=== PATIENT | female | born 1950 | race Caucasian/White ===

== ENCOUNTER → 2017-12-02 | Outpatient (CLI) | payer MEDICARE ==
--- NOTE | 2017-12-03 07:25 | MM ---
Reason for exam: screening (asymptomatic). Last mammogram was performed 1 year and 4 months ago. History: Benign excisional biopsy of the left breast. Physical Findings: A clinical breast exam by your physician is recommended on an annual basis and results should be correlated with mammographic findings. MG 3D Screening Mammo W/Cad Bilateral CC and MLO view(s) were taken. Prior study comparison: August 08, 2016, mammogram. March 29, 2015, mammogram. There are scattered fibroglandular densities. There is no discrete abnormality. No significant changes when compared with prior studies. ASSESSMENT: Negative, BI-RAD 1 RECOMMENDATION: Routine screening mammogram of both breasts in 1 year.
--- NOTE | 2017-12-03 18:12 | BD ---
EXAMINATION TYPE: Axial Bone Density DATE OF EXAM: 12/02/2017 COMPARISON: NONE CLINICAL HISTORY: 67-year-old female postmenopausal screening Height: 62 Weight: 130.2 FRAX RISK QUESTIONS: Alcohol (3 or more units per day): no Family History (Parent hip fracture): yes Glucocorticoids (More than 3mos): no (Ex: prednisone, prednisolone, methylprednisolone, dexamethasone, and hydrocortisone). History of Fracture in Adulthood: yes Secondary Osteoporosis: 1. Type 1 Diabetes: no 2. Hyperthyroidism: no 3. Menopause before 45: yes 4. Malnutrition: no 5. Chronic liver disease: no Rheumatoid Arthritis: no Current Tobacco Use: no RISK FACTORS HISTORY OF: Active: yes Diet low in dairy products/other sources of calcium: no Postmenopausal woman: age 39 Lost more than 2 inches in height since high school: no MEDICATIONS: none Additional History: EXAM MEASUREMENTS: Bone mineral densitometry was performed using the [employer] System. Bone mineral density as measured about the Lumbar spine is: ----- L1-L4(G/cm2): 0.780 T Score Values are as follows: ----- L2: -3.5 ----- L3: -3.4 ----- L4: -3.6 ----- L1-L4: -3.3 Bone mineral density : baseline Bone mineral density about the R hip (g/cm2): 0.791 Bone mineral density about the L hip (g/cm2): 0.816 T Score values are as follows: -----R Neck: -1.8 -----L Neck: -1.6 -----R Total: -2.2 -----L Total: -1.9 Bone mineral density : baseline IMPRESSION: Osteoporosis (T Score less than -2.5). There is increased fracture risk and therapy is usually indicated based on age. Re-Screen 1-2 years. NOTE: T-SCORE=SD OF THE YOUNG ADULT MEAN.
== END | disposition home or self-care (01) ==
LOC: RADMAMWWP 09:32
PROVIDERS: ATTEND Internal Medicine
DX: Z12.31 Encounter for screening mammogram for malignant neoplasm of breast (principal); M81.0 Age-related osteoporosis without current pathological fracture; Z78.0 Asymptomatic menopausal state
CPT/HCPCS: 77063; 77067; 77080

== ENCOUNTER 2018-02-05 09:31 | Day surgery (SDC) | payer MEDICARE ==
[2018-02-03 14:25] VITALS: BMI 22.8
[~2018-02-05 09:31] MED LIST: LACTATED RINGERS 1,000 ML IV SCH; LIDOCAINE 1% 20 ML VIAL (10MG/ML) FOR IV START INTRADERMA PRN
[2018-02-05 10:47] VITALS: TEMP 98
[2018-02-05] MEDS ORDERED: PROPOFOL 10 MG/ML 20 ML VIAL IV ONE (11:05)
--- NOTE | 2018-02-05 11:23 | P.PCN ---
Date of Procedure: 02/05/18 Procedure(s) Performed: BRIEF HISTORY: Patient is a 67-year-old pleasant female, scheduled for an elective colonoscopy as a part of screening for colorectal neoplasia. PROCEDURE PERFORMED: Colonoscopy. PREOPERATIVE DIAGNOSIS: Screening for colon cancer. IV sedation per Anesthesia. PROCEDURE: After informed consent was obtained, the patient, was brought into the endoscopy unit. IV sedation was administered by Anesthesia under continuous monitoring. Digital rectal examination was normal. Initially the Olympus CF- 160 flexible video colonoscope was then inserted in the rectum, gradually advanced into the cecum without any difficulty. Careful examination was performed as the scope was gradually being withdrawn. Ileocecal valve and the appendiceal orifice were visualized and appeared normal. Prep was excellent. Mucosa of the cecum, ascending colon, transverse colon, descending colon, sigmoid colon, and rectum appeared normal. Scattered right-sided diverticulosis seen. Retroflexion was performed in the rectum and small internal hemorrhoids were seen. The patient tolerated the procedure well. IMPRESSION: Normal-appearing colon from rectum to cecum with no evidence of colorectal neoplasia . Scattered diffuse diverticulosis Small internal hemorrhoids RECOMMENDATIONS: Findings of this examination were discussed with the patient is a family. She was advised to have a repeat screening colonoscopy in 10 years.
[2018-02-05 11:46] VITALS: BP 134/86; PULSE 86; RESP 16
== END 2018-02-05 12:08 | disposition home or self-care (01) ==
LOC: ORWHC2ENDO 09:31
PROVIDERS: ATTEND Internal Medicine Gastroenterology
DX: Z12.11 Encounter for screening for malignant neoplasm of colon (principal); K64.8 Other hemorrhoids; K57.30 Diverticulosis of large intestine without perforation or abscess without bleeding
CPT/HCPCS: J2704; G0121

== ENCOUNTER 2018-02-06 09:45 | Day surgery (SDC) | payer MEDICARE ==
[2018-02-03 14:35] VITALS: BMI 22.8
[~2018-02-06 09:45] MED LIST changes: +HYDROmorphone 0.5 MG/0.5 ML SYRINGE IVP PRN; -LIDOCAINE 1% 20 ML VIAL (10MG/ML) FOR IV START INTRADERMA PRN; +MORPHINE SULFATE 2 MG/ML SYRINGE IV PRN; +Pre Op ABX Message 1 EACH MISC MISCELLANE ONE; +cefOXitin IN SWFI 2 GM/10 ML SYRINGE IVP ONE
[2018-02-06 10:06] VITALS: RESP 18; TEMP 97.8
[2018-02-06] MEDS ORDERED: LACTATED RINGERS 1,000 ML IV ONE ×2 (10:07→12:27)
[2018-02-06] MEDS ORDERED: LIDOCAINE 1% 20 ML VIAL (10MG/ML) FOR IV START INTRADERMA ONE (10:14)
[2018-02-06] MEDS ORDERED: ONDANSETRON 4 MG/2 ML VIAL IVP ONE (10:15)
[2018-02-06] MEDS ORDERED: DEXAMETHASONE SOD PHOS (MDV) 100 MG/10 ML VIAL IVP ONE (10:15)
[2018-02-06] MEDS ORDERED: MIDAZOLAM 2 MG/2 ML VIAL ONE (11:29)
[2018-02-06] MEDS ORDERED: fentaNYL (PF) 50 MCG/ML 2 ML AMP ONE (11:29)
[2018-02-06] MEDS ORDERED: PROPOFOL 10 MG/ML 20 ML VIAL IV ONE (11:29)
[2018-02-06] MEDS ORDERED: LIDOCAINE 1% INJ 10MG/ML (20 ML MDV) ONE (11:29)
[2018-02-06] MEDS ORDERED: BUPIVACAINE-EPI 0.5%-1:200,000 10 ML VIAL SQ ONE ×3 (11:49)
--- NOTE | 2018-02-06 12:55 | P.OP ---
Date of Procedure: 02/06/18 Preoperative Diagnosis: Squamous cell CA x2 RLE x1 LLE Postoperative Diagnosis: same Procedure(s) Performed: Excision of squamous cell CA RLEx2 LLEx1 Anesthesia: MAC Surgeon: Samy Orourke Estimated Blood Loss (ml): 3 Pathology: other (Sent) Condition: stable Description of Procedure: Patient is brought operative suite remained in the supine position underwent sedation per department of anesthesia prepped and draped usual sterile fashion timeout performed correct patient correct procedure correct site was verified the skin and subcutaneous tissues were anesthetized over the lesions on the right lower extremity. A 15 blade scalpel was used to excise the lesions with adequate margins there then closed with 30 subdermal Vicryl followed by 2-0 nylon in a vertical mattress style. The excision was approximately 2 cm x 6 cm for each. The lesion on the left posterior hernia was then approached in a similar fashion. It was 3 cm x 7 cm excision. This closed in a similar fashion sterile dressing was applied patient tolerated procedure well no apparent complications Plan - Discharge Summary New Discharge Prescriptions: No Action Multivitamins, Thera [Multivitamin (formulary)] 1 tab PO DAILY Turmeric Root Extract [Turmeric] 500 mg PO DAILY Magnesium 200 mg PO DAILY Fish Oil/Dha/Epa [Fish Oil 1,200 mg Fish Oil] 1 each PO DAILY Evening Whitmore Oil 500 mg PO DAILY Cholecalciferol (Vitamin D3) [Vitamin D3] 2,000 unit PO DAILY Discharge Medication List Cholecalciferol (Vitamin D3) [Vitamin D3] 2,000 unit PO DAILY 02/03/18 [History] Evening Whitmore Oil 500 mg PO DAILY 02/03/18 [History] Fish Oil/Dha/Epa [Fish Oil 1,200 mg Fish Oil] 1 each PO DAILY 02/03/18 [History] Magnesium 200 mg PO DAILY 02/03/18 [History] Multivitamins, Thera [Multivitamin (formulary)] 1 tab PO DAILY 02/03/18 [History ] Turmeric Root Extract [Turmeric] 500 mg PO DAILY 02/03/18 [History]
[2018-02-06 13:38] VITALS: BP 150/88; PULSE 71
--- NOTE | 2018-02-12 06:40 | CDI ---
Outpatient Documentation Clarification Form Date: 02/12/2018 CDS/Set Up Technician Name: Ellis Borjas Phone: If any questions, call Awilda Barnard [employer] at [phone] Patient Name: Joseline Pizano Admit Date: 02/06/2018 Discharge Date: 02/06/2018 ATTENTION: The [facility] Coding Staff appreciate your assistance in clarifying documentation. Please respond to the clarification below the line at the bottom and electronically sign. The [facility] Coding staff will review the response and follow-up if needed. Please note: Queries are made part of the Legal Health Record. If you have any questions, please contact the [employer]. Dear Sharad Junior, As per your Operative note documentation Patient has squamous cell CA RLEx2, LLEx1. It is not clear from operative notes description that a separate incision was performed to excise lesions from Right lower extremity Please clarify how the lesions were excised from Right Lower extremity. 1. Using same incision both lesions were excised 2. Using separate incision for each lesion excision____YES Thank you for your kind consideration. MTDD
== END 2018-02-06 13:49 | disposition home or self-care (01) ==
LOC: OR 09:45
PROVIDERS: ATTEND Student in an Organized Health Care Education/Training Program
DX: C44.729 Squamous cell carcinoma of skin of left lower limb, including hip (principal); L57.0 Actinic keratosis; L81.4 Other melanin hyperpigmentation; M19.90 Unspecified osteoarthritis, unspecified site; I73.00 Raynaud's syndrome without gangrene; G43.909 Migraine, unspecified, not intractable, without status migrainosus; Z82.49 Family history of ischemic heart disease and other diseases of the circulatory system; Z85.828 Personal history of other malignant neoplasm of skin
CPT/HCPCS: 11606; 11406 ×2; 88305; J2250; J2405; J2001; J3010; J1100; J2704

== ENCOUNTER → 2018-12-11 | Outpatient (CLI) | payer MEDICARE ==
--- NOTE | 2018-12-11 11:20 | MM ---
Reason for exam: screening (asymptomatic). Last mammogram was performed 1 year ago. History: Patient history of other cancer. Benign excisional biopsy of the left breast. Physical Findings: A clinical breast exam by your physician is recommended on an annual basis and results should be correlated with mammographic findings. MG 3D Screening Mammo W/Cad Bilateral CC and MLO view(s) were taken. Prior study comparison: December 02, 2017, bilateral MG 3d screening mammo w/cad. August 08, 2016, mammogram. There are scattered fibroglandular densities. There is no discrete abnormality. ASSESSMENT: Negative, BI-RAD 1 RECOMMENDATION: Routine screening mammogram of both breasts in 1 year.
== END | disposition home or self-care (01) ==
LOC: RADMAMWWP 07:08
PROVIDERS: ATTEND Internal Medicine
DX: Z12.31 Encounter for screening mammogram for malignant neoplasm of breast (principal)
CPT/HCPCS: 77063; 77067

== ENCOUNTER → 2019-01-09 | Outpatient (CLI) | payer MEDICARE ==
--- NOTE | 2019-01-12 08:54 | USB ---
Reason for exam: clinical finding. History: Patient history of other cancer. Benign excisional biopsy of the left breast. Indicated problem(s): palpable abnormality in the left breast. Physical Findings: Nurse Summary: 1cm nodule moves (nurse dw). US Breast Axilla LT Left breast axilla ultrasound including focal area of concern, retroareolar and axilla demonstrates a 0.7 x 0.5 x 0.4cm ovoid, solid, hypoechoic, vascular lymph node at the axilla and a 0.5 x 0.5 x 0.4cm ovoid, solid, hypoechoic, vascular lymph node at the axilla. These results were verbally communicated with the patient and result sheet given to the patient on 01/09/19. ASSESSMENT: Benign, BI-RAD 2 RECOMMENDATION: Return to routine screening mammogram schedule for both breasts.
== END | disposition home or self-care (01) ==
LOC: RADUSWWP 14:14
PROVIDERS: ATTEND Internal Medicine
DX: R92.8 Other abnormal and inconclusive findings on diagnostic imaging of breast (principal)

== ENCOUNTER → 2019-11-18 | Outpatient (CLI) | payer MEDICARE ==
--- NOTE | 2019-11-18 10:43 | MM ---
Reason for exam: clinical finding. Last mammogram was performed 11 months ago. History: Patient is postmenopausal and history of other cancer. Benign excisional biopsy of the left breast, 1988. Physical Findings: Nurse Summary: adenopathy 1.5 x 1.5cm left axilla (nurse ts). MG 3D Diag Mammo W/Cad ROCIO Bilateral CC and MLO view(s) were taken. Prior study comparison: December 11, 2018, bilateral MG 3d screening mammo w/cad. December 02, 2017, bilateral MG 3d screening mammo w/cad. There are scattered fibroglandular densities. No significant new findings when compared with previous films. These results were verbally communicated with the patient and result sheet given to the patient on 11/18/19. ASSESSMENT: Negative, BI-RAD 1 RECOMMENDATION: Routine screening mammogram of both breasts in 1 year. Manage patient on a clinical basis.
--- NOTE | 2019-11-18 10:45 | USB ---
Reason for exam: clinical finding. History: Patient is postmenopausal and history of other cancer. Benign excisional biopsy of the left breast, 1988. US Breast Axilla LT Left limited breast ultrasound including focal area of concern, retroareolar and axilla demonstrates sccessory breast tissue at axilla BB. No cystic or solid lesion seen. These results were verbally communicated with the patient and result sheet given to the patient on 11/18/19. ASSESSMENT: Negative, BI-RAD 1 RECOMMENDATION: Routine screening mammogram of both breasts in 1 year.
== END | disposition home or self-care (01) ==
LOC: RADMAMWWP 08:11
PROVIDERS: ATTEND Internal Medicine
DX: N63.0 Unspecified lump in unspecified breast (principal); R59.0 Localized enlarged lymph nodes
CPT/HCPCS: 77066; 76642; G0279; 77062

== ENCOUNTER → 2019-12-30 | Outpatient (CLI) | payer MEDICARE ==
--- NOTE | 2019-12-30 14:24 | BD ---
EXAMINATION TYPE: Axial Bone Density DATE OF EXAM: 12/30/2019 COMPARISON: NONE CLINICAL HISTORY: Height: 62 Weight: 127.7 FRAX RISK QUESTIONS: Alcohol (3 or more units per day): no Family History (Parent hip fracture): yes Glucocorticoids (More than 3mos): no (Ex: prednisone, prednisolone, methylprednisolone, dexamethasone, and hydrocortisone). History of Fracture in Adulthood: yes Secondary Osteoporosis: 1. Type 1 Diabetes: no 2. Hyperthyroidism: no 3. Menopause before 45: no 4. Malnutrition: no 5. Chronic liver disease: no Rheumatoid Arthritis: no Current Tobacco Use: no RISK FACTORS HISTORY OF: Family History of Osteoporosis: no Active: yes Diet low in dairy products/other sources of calcium: no Postmenopausal woman: age 47 Lost more than 2 inches in height since high school: no MEDICATIONS: amlodipine, adavan Additional History: EXAM MEASUREMENTS: Bone mineral densitometry was performed using the [employer]. Bone mineral density as measured about the Lumbar spine is: ----- L1-L4(G/cm2): 0.788 T Score Values are as follows: ----- L2: -3.4 ----- L3: -3.6 ----- L4: -3.2 ----- L1-L4: -3.3 Bone mineral density has: increased 1.9 % since study of: 12.02.2017 Bone mineral density about the R hip (g/cm2): 0.748 Bone mineral density about the L hip (g/cm2): 0.783 T Score values are as follows: -----R Neck: -2.1 -----L Neck: -1.8 -----R Total: -2.5 -----L Total: -2.0 Bone mineral density has: decreased -2.4 % since study of: 12.02.2017 IMPRESSION: Osteoporosis (T Score less than -2.5). There is increased fracture risk and therapy is usually indicated based on age. Re-Screen 1-2 years. NOTE: T-SCORE=SD OF THE YOUNG ADULT MEAN.
== END | disposition home or self-care (01) ==
LOC: RADBDWWP 09:29
PROVIDERS: ATTEND Internal Medicine
DX: M81.8 Other osteoporosis without current pathological fracture (principal)
CPT/HCPCS: 77080

== ENCOUNTER → 2020-03-08 | Outpatient (CLI) | payer MEDICARE ==
--- NOTE | 2020-03-08 12:06 | XR ---
EXAM TYPE: LUMBAR SPINE X RAY SERIES COMPARISON: NONE HISTORY: Pain TECHNIQUE: Four views are submitted. FINDINGS: Diffuse osteopenia with grade 1 anterolisthesis L4 on L5. Multilevel facet arthropathy. Multilevel de generative disc disease. No compression deformities. A grade 1 anterolisthesis L5 on S1. IMPRESSION: 1. Multilevel degenerative disc disease and facet arthropathy with grade 1 anterolisthesis L4 on L5 a nd L5 on S1
== END | disposition home or self-care (01) ==
LOC: RADXRYALE 11:03
PROVIDERS: ATTEND Family Medicine
DX: M43.16 Spondylolisthesis, lumbar region (principal); M51.36 Other intervertebral disc degeneration, lumbar region; M47.816 Spondylosis without myelopathy or radiculopathy, lumbar region
CPT/HCPCS: 72110

== ENCOUNTER → 2021-03-13 | Outpatient (CLI) | payer MEDICARE ==
--- NOTE | 2021-03-16 11:14 | MM ---
Reason for exam: screening (asymptomatic). Last mammogram was performed 1 year and 4 months ago. History: Patient is postmenopausal and has history of other cancer at age 29. Benign excisional biopsy of the left breast, 1988. Physical Findings: A clinical breast exam by your physician is recommended on an annual basis and results should be correlated with mammographic findings. MG 3D Screening Mammo W/Cad Bilateral CC and MLO view(s) were taken. Prior study comparison: November 18, 2019, bilateral MG 3d diag mammo w/cad ROCIO. December 11, 2018, bilateral MG 3d screening mammo w/cad. There are scattered fibroglandular densities. No significant changes when compared with prior studies. ASSESSMENT: Negative, BI-RAD 1 RECOMMENDATION: Routine screening mammogram of both breasts in 1 year.
== END | disposition home or self-care (01) ==
LOC: RADMAMWWP 13:20
PROVIDERS: ATTEND Family Medicine
DX: Z12.31 Encounter for screening mammogram for malignant neoplasm of breast (principal); Z78.0 Asymptomatic menopausal state
CPT/HCPCS: 77063; 77067

== ENCOUNTER → 2022-07-11 | Outpatient (CLI) | payer MEDICARE ==
--- NOTE | 2022-07-12 08:47 | MM ---
Reason for Exam: Screening (asymptomatic). Last mammogram was performed 1 year(s) and 4 month(s) ago. Patient History: Menarche at age 11. First Full-Term at age 18. Hysterectomy at age 39. Postmenopausal. Other cancer, age 29. Hormonal Contraceptives for 11 years from age 18 until age 29. 1989, Benign Excisional Biopsy on the left side. Risk Values: Lavinia 5 year model risk: 1.5%. NCI Lifetime model risk: 3.9%. Prior Study Comparison: 12/11/2018 Bilateral Screening Mammogram, [facility]. 11/18/2019 Bilateral Diagnostic Mammogram, [facility]. 03/13/2021 Bilateral Screening Mammogram, [facility]. Tissue Density: There are scattered fibroglandular densities. Findings: Analyzed By CAD. There is no suspicious group of microcalcifications or new suspicious mass in either breast. Overall Assessment: Negative, BI-RAD 1 Management: Screening Mammogram of both breasts in 1 year. . Patient should continue monthly self-breast exams. A clinical breast exam by your physician is recommended on an annual basis. This exam should not preclude additional follow-up of suspicious palpable abnormalities. Note on Lavinia scores and lifetime risk: 1. A Lavinia score greater than 3% is considered moderate risk. If this is the case, consider specialist referral to assess eligibility for a risk reducing agent. 2. If overall lifetime risk for the development of breast cancer is 20% or higher, the patient may qualify for future screening with alternating mammogram and breast MRI. Electronically signed and approved by: Dago Alfaro M.D.
== END | disposition home or self-care (01) ==
LOC: RADMAMWWP 09:33
PROVIDERS: ATTEND Family Medicine
DX: Z12.31 Encounter for screening mammogram for malignant neoplasm of breast (principal); Z78.0 Asymptomatic menopausal state
CPT/HCPCS: 77063; 77067

== ENCOUNTER 2023-02-12 12:35 | Emergency (ER) | payer MEDICARE ==
--- NOTE | 2023-02-12 13:02 | ED ---
General Adult HPI - General Source: patient, RN notes reviewed Mode of arrival: ambulatory Limitations: no limitations <Farhan Mccullough - Last Filed: 02/12/23 13:00> <Umberto Garland - Last Filed: 02/12/23 15:02> - General Chief complaint: Fall Stated complaint: Syncope w/R Arm Injury Time Seen by Provider: 02/12/23 13:00 - History of Present Illness Initial comments: 72-year-old female presents emergency Department with chief complaint of right hand injury. Patient states that she stood up quickly. states that she got very lightheaded states she sat back down got up in fell the ground. Patient had no head injuries complains of right hand pain, bruising and swelling. She states she is not dizzy currently denies chest pain. (Farhan Mccullough) Dictation was produced using [employer]ide[employer] dictation software. please excuse any grammatical, word or spelling errors. Chief Complaint: 72-year-old female presents with right hand pain History of Present Illness: Patient's 72-year-old female she denies any significant comorbidities. States that randomly she gets these bouts of nausea and vomiting and syncope. States that she had some fatty foods last night. She went home and had one of these episodes. She fell and hit her hand. She is concerned about her hand. She is not concerned about her syncopal episode. Denies any history of cardiac disease. The ROS documented in this emergency department record has been reviewed and confirmed by me. Those systems with pertinent positive or negative responses have been documented in the HPI. All other systems are other negative and/or noncontributory. (Umberto Garland) - Related Data Home Medications Medication Instructions Recorded Confirmed Cholecalciferol (Vitamin D3) 2,000 unit PO DAILY 02/03/18 02/03/18 [Vitamin D3] Evening Neola Oil 500 mg PO DAILY 02/03/18 02/03/18 Fish Oil/Dha/Epa [Fish Oil 1,200 1 each PO DAILY 02/03/18 02/03/18 mg Fish Oil] Magnesium 200 mg PO DAILY 02/03/18 02/03/18 Multivitamins, Thera [Multivitamin 1 tab PO DAILY 02/03/18 02/03/18 (formulary)] Turmeric Root Extract [Turmeric] 500 mg PO DAILY 02/03/18 02/03/18 Previous Rx's Medication Instructions Recorded HYDROcodone/APAP 5-325MG [[place] 1 tab PO Q6HR PRN 3 Days #12 tab 02/06/18 5-325] Allergies Allergy/AdvReac Type Severity Reaction Status Date / Time No Known Allergies Allergy Verified 02/12/23 12:59 Review of Systems ROS Other: All systems not noted in ROS Statement are negative. <Farhan Mccullough - Last Filed: 02/12/23 13:00> ROS Other: All systems not noted in ROS Statement are negative. <Umberto Garland - Last Filed: 02/12/23 15:02> ROS Statement: Those systems with pertinent positive or pertinent negative responses have been documented in the HPI. Past Medical History Additional Past Medical History / Comment(s): Raynaud's disease; Hx Diverticulitis History of Any Multi-Drug Resistant Organisms: None Reported Past Surgical History: Hysterectomy Additional Past Surgical History / Comment(s): Breast biopsy, squamous lesions removed; jaw bone graft 12/19 Past Anesthesia/Blood Transfusion Reactions: No Reported Reaction Past Psychological History: No Psychological Hx Reported Past Alcohol Use History: Occasional Past Drug Use History: None Reported - Past Family History Father Family Medical History: Cancer Additional Family Medical History / Comment(s): Skin CA <Farhan Mccullough - Last Filed: 02/12/23 13:00> General Exam Limitations: no limitations <Farhan Mccullough - Last Filed: 02/12/23 13:00> <Umberto Garland - Last Filed: 02/12/23 15:02> - General Exam Comments Initial Comments: Visual Physical Exam Vital signs reviewed General: Well-appearing, nontoxic, no acute distress. Head: Normocephalic, atraumatic Eyes: PERRLA, EOMI ENT: Airway patent Chest: Nonlabored breathing Skin: No visual rash, normal skin tone Neuro: Alert and oriented 3 Musculoskeletal: No gross abnormalities (Farhan Mccullough) PHYSICAL EXAM: General Impression: Alert and oriented x3, not in acute distress HEENT: Normocephalic atraumatic, extra-ocular movements intact, pupils equal and reactive to light bilaterally, mucous membranes moist. Cardiovascular: Heart regular rate and rhythm Chest: Able to complete full sentences, no retractions, no tachypnea Abdomen: abdomen soft, non-tender, non-distended, no organomegaly Musculoskeletal: Pulses present and equal in all extremities, no peripheral edema Motor: no focal deficits noted Neurological: CN II-XII grossly intact, no focal motor or sensory deficits noted Skin: Intact with no visualized rashes Psych: Normal affect and mood Right hand: Bruising over the fifth MCP (Umberto Garland) Course Vital Signs 02/12/23 02/12/23 12:56 14:50 Temperature 99.2 F 98.2 F Pulse Rate 87 85 Respiratory 18 18 Rate Blood Pressure 142/82 143/86 O2 Sat by Pulse 98 97 Oximetry EKG Findings - EKG Comments: EKG Findings:: My EKG interpretation: Ventricular rate 79, sinus rhythm,. Interval 52, QRS 87, QTC 409. No ID prolongation, no QTC prolongation. No old EKG for comparison. His T-wave inversions in inferior leads and lateral precordial leads. Overall this EKG is nonspecific <Umberto Garland - Last Filed: 02/12/23 15:02> Procedures - Orthopedic Splinting/Casting Injury #1 Side: right Upper Extremity Injury Location: short arm, hand Upper Extremity Immobilizer: ulnar gutter <Umberto Garland - Last Filed: 02/12/23 15:02> Medical Decision Making <Farhan Mccullough - Last Filed: 02/12/23 13:00> - Lab Data Result diagrams: 02/12/23 14:05 02/12/23 14:05 <Umberto Garland - Last Filed: 02/12/23 15:02> - Medical Decision Making I completed the quick note portion of this chart signed Farhan Mccullough PA-C (Farhan Mccullough) Was pt. sent in by a medical professional or institution ([facility], [facility], urgent care, hospital, or snf...) When possible be specific @ -No Did you speak to anyone other than the patient for history (EMS, parent, family, police, friend...)? What history was obtained from this source @ -No Did you review nursing and triage notes (agree or disagree)? Why? @ -I reviewed and agree with nursing and triage notes Were old charts reviewed (outside hosp., previous admission, EMS record, old EKG, old radiological studies, urgent care reports/EKG's, snf records)? Report findings @ -No old charts were reviewed Differential Diagnosis (chest pain, altered mental status, abdominal pain women, abdominal pain men, vaginal bleeding, musculoskeletal, weakness, fever, dyspnea, syncope, headache, dizziness, GI bleed, back pain, seizure, CVA, palpatations, mental health)? @ -Differential Syncope: Valvular disease, hypertrophic cardiomyopathy, pulmonary embolism, tamponade, tachycardia, bradycardia, VA, hypovolemia, hemorrhage, dissection, anemia, intracranial hemorrhage, seizure, hypoglycemia, carbon monoxide poisoning, this is not meant to be an all-inclusive list. EKG interpreted by me (3pts min.). @ -As above X-rays interpreted by me (1pt min.). @ -Right hand x-ray shows angulated fifth metacarpal fracture CT interpreted by me (1pt min.). @ -None done U/S interpreted by me (1pt. min.). @ -None done What testing was considered but not performed or refused? (CT, X-rays, U/S, labs)? Why? @ -None What meds were considered but not given or refused? Why? @ -None Did you discuss the management of the patient with other professionals (lili singh i.e., Dr., PA, RISK LEAD, lab, RT, psych nurse, director social, drapery installer, teacher, chief administrative officer, supportive employment case manager)? Give summary @ -No Was smoking cessation discussed for >3mins.? @ -No Was critical care preformed (if so, how long)? @ -No Were there social determinants of health that impacted care today? How? (Homelessness, low income, unemployed, alcoholism, drug addiction, transportation, low edu. Level, literacy, decrease access to med. care, alf, rehab)? @ -No Was there de-escalation of care discussed even if they declined (Discuss DNR or withdrawal of care, Hospice)? DNR status @ -No What co-morbidities impacted this encounter? (DM, HTN, Smoking, COPD, CAD, Cancer, CVA, ARF, Chemo, Hep., AIDS, mental health diagnosis, sleep apnea, morbid obesity)? @ -None Was patient admitted / discharged? Hospital course, mention meds given and route, prescriptions, significant lab abnormalities, going to OR and other pertinent info. @ -72-year-old female presents emergency Department with chief complaint of hand pain. She has a bruise with concern for traumatic injury to the right hand. Vital signs stable. She did report having a syncopal episode that led to this. She has nonspecific EKG changes. CBC, long panel is unremarkable. Patient was placed in a right ulnar gutter splint. Laboratory evaluation obtained. Patient notified of her lab results and her EKG. Recommended that patient be admitted observation for further care. She preferred to be discharged follow closely with her primary care doctor. States that she believes that this was a vasovagal episode. Patient told to return to emergency department if she has recurrent episode. She has no history of cardiac comorbidities. The patient feels like it was a vasovagal episode. Some clear if her EKG is her baseline given that there are no old EKGs for comparison. Patient is agreeable disposition after sure decision-making. Undiagnosed new problem with uncertain prognosis? @ -No Drug Therapy requiring intensive monitoring for toxicity (Heparin, Nitro, Insulin, Cardizem)? @ -No Were any procedures done? @ -No Diagnosis/symptom? Acute, or Chronic, or Acute on Chronic? Uncomplicated (without systemic symptoms) or Complicated (systemic symptoms)? @ -Fifth metacarpal fracture, syncope Side effects of treatment? @ -No Exacerbation, Progression, or Severe Exacerbation? @ -No Poses a threat to life or bodily function? How? (Chest pain, USA, VA, pneumonia, PE, COPD, DKA, ARF, appy, cholecystitis, CVA, Diverticulitis, Homicidal, Suicidal, threat to staff... and all critical care pts) @ -yes (Umebrto Garland) - Lab Data Lab Results 02/12/23 02/12/23 02/12/23 Range/Units 14:05 14:05 14:22 WBC 10.4 (3.8-10.6) k/uL RBC 4.60 (3.80-5.40) m/uL Hgb 15.3 (11.4-16.0) gm/dL Hct 44.9 (34.0-46.0) % MCV 97.6 (80.0-100.0) fL MCH 33.2 (25.0-35.0) pg MCHC 34.0 (31.0-37.0) g/dL RDW 12.7 (11.5-15.5) % Plt Count 248 (150-450) k/uL MPV 7.0 Neutrophils % 93 % Lymphocytes % 3 % Monocytes % 3 % Eosinophils % 0 % Basophils % 1 % Neutrophils # 9.6 H (1.3-7.7) k/uL Lymphocytes # 0.3 L (1.0-4.8) k/uL Monocytes # 0.3 (0-1.0) k/uL Eosinophils # 0.0 (0-0.7) k/uL Basophils # 0.1 (0-0.2) k/uL PT 10.4 (10.0-12.5) sec INR 0.9 (<1.2) APTT 24.5 (22.0-30.0) sec Sodium 138 (137-145) mmol/L Potassium 4.4 (3.5-5.1) mmol/L Chloride 101 (98-107) mmol/L Carbon Dioxide 23 (22-30) mmol/L Anion Gap 14 mmol/L BUN 27 H (7-17) mg/dL Creatinine 0.63 (0.52-1.04) mg/dL Est GFR (CKD-EPI)AfAm >90 (>60 ml/min/1.73 sqM) Est GFR (CKD-EPI)NonAf 89 (>60 ml/min/1.73 sqM) Glucose 124 H (74-99) mg/dL Calcium 9.4 (8.4-10.2) mg/dL Total Bilirubin 0.9 (0.2-1.3) mg/dL AST 34 (14-36) U/L ALT 33 (4-34) U/L Alkaline Phosphatase 85 (38-126) U/L Total Protein 7.3 (6.3-8.2) g/dL Albumin 4.6 (3.5-5.0) g/dL Disposition <Farhan Mccullough - Last Filed: 02/12/23 13:00> Is patient prescribed a controlled substance at d/c from ED?: No Time of Disposition: 15:02 <Umberto Garland - Last Filed: 02/12/23 15:02> Clinical Impression: Syncope, Closed fracture of 5th metacarpal Disposition: HOME SELF-CARE Condition: Fair Instructions (If sedation given, give patient instructions): Syncope (ED), Hand Fracture (ED) Referrals: Farhan Talamantes DO [Primary Care Provider] - 1-2 days Mounika Solano DO [Doctor of Osteopathic Medicine] - 1-2 days
[2023-02-12 13:11] VITALS: RESP 18
--- NOTE | 2023-02-12 13:47 | XR ---
EXAMINATION TYPE: XR hand complete RT DATE OF EXAM: 02/12/2023 COMPARISON: NONE HISTORY: Pain TECHNIQUE: Three views are submitted. FINDINGS: Diffuse osteopenia. There is an angulated displaced fracture of the fifth metacarpal. Mild radiocarpa l arthropathy. No erosive changes. IMPRESSION: 1. Displaced\angulated fracture distal right fifth metacarpal.
[2023-02-12 14:26] LABS: Basophils # (A) 0.1 k/uL (0-0.2); Basophils % (A) 1 %; Eosinophils % (A) 0 %; HCT 44.9 % (34.0-46.0); HGB 15.3 gm/dL (11.4-16.0); Lymphocytes # (A) 0.3 k/uL (1.0-4.8); Lymphocytes % (A) 3 %; MCH 33.2 pg (25.0-35.0); MCV 97.6 fL (80.0-100.0); Monocytes # (A) 0.3 k/uL (0-1.0); Monocytes % (A) 3 %; Neutrophils # (A) 9.6 k/uL (1.3-7.7); Neutrophils % (A) 93 %; Platelet Count 248 k/uL (150-450); RDW 12.7 % (11.5-15.5); WBC 10.4 k/uL (3.8-10.6)
[2023-02-12 14:38] LABS: ALT 33 U/L (4-34); AST 34 U/L (14-36); African American GFR (CKD) >90 (>60 ml/min/1.73 sqM); Albumin 4.6 g/dL (3.5-5.0); Alkaline Phosphatase 85 U/L (38-126); Anion Gap 14 mmol/L; Blood Urea Nitrogen 27 mg/dL (7-17); Carbon Dioxide 23 mmol/L (22-30); Chloride 101 mmol/L (98-107); Glucose 124 mg/dL (74-99); Non-African American GFR(CKD) 89 (>60 ml/min/1.73 sqM); Potassium 4.4 mmol/L (3.5-5.1); Sodium 138 mmol/L (137-145); Total Bilirubin 0.9 mg/dL (0.2-1.3); Total Protein 7.3 g/dL (6.3-8.2)
[2023-02-12 14:40] LABS: Calcium 9.4 mg/dL (8.4-10.2)
[2023-02-12 14:53] LABS: INR 0.9 (<1.2); Partial Thromboplastin Time 24.5 sec (22.0-30.0); Prothrombin Time 10.4 sec (10.0-12.5)
[2023-02-12 15:41] VITALS: BP 140/83; PULSE 82; TEMP 98.3
== END 2023-02-12 16:10 | disposition home or self-care (01) ==
LOC: EC 12:35
DX: S62.306A Unspecified fracture of fifth metacarpal bone, right hand, initial encounter for closed fracture (principal); W19.XXXA Unspecified fall, initial encounter
CPT/HCPCS: 29125; 36415; 80053; 84484; 85025; 85610; 85730; 93005; 99284

== ENCOUNTER → 2023-10-14 | Outpatient (CLI) | payer MEDICARE | END | disposition home or self-care (01) | LOC: LABPRL 08:46 | PROVIDERS: ATTEND Family Medicine | DX: I10 Essential (primary) hypertension (principal); E78.2 Mixed hyperlipidemia; F41.1 Generalized anxiety disorder; Z79.899 Other long term (current) drug therapy | CPT/HCPCS: 80053; 80061; 84443; 85025 ==

== ENCOUNTER → 2024-02-07 | Outpatient (CLI) | payer MEDICARE ==
--- NOTE | 2024-02-10 08:58 | MM ---
Reason for Exam: Screening (asymptomatic). Last mammogram was performed 1 year(s) and 7 month(s) ago. Patient History: Menarche at age 11. First Full-Term at age 18. Hysterectomy at age 39. Postmenopausal. Other cancer, age 29. Hormonal Contraceptives for 11 years from age 18 until age 29. 1988, Benign Excisional Biopsy on the left side. Risk Values: Lavinia 5 year model risk: 1.5%. NCI Lifetime model risk: 3.5%. Prior Study Comparison: 11/18/2019 Bilateral Diagnostic Mammogram, [facility]. 03/13/2021 Bilateral Screening Mammogram, [facility]. 07/11/2022 Bilateral MG 3D screening mammo w/cad, [facility]. Tissue Density: There are scattered areas of fibroglandular density. Findings: Analyzed By CAD. Right breast: There is no suspicious group of microcalcifications or new suspicious mass. Left breast: There is no suspicious group of microcalcifications or new suspicious mass. Overall Assessment: Negative, BI-RAD 1 Management: Screening Mammogram of both breasts in [address] [facility] will attempt to contact patient to return for supplemental views and ultrasound if indicated. Patient should continue monthly self-breast exams. A clinical breast exam by your physician is recommended on an annual basis. This exam should not preclude additional follow-up of suspicious palpable abnormalities. Note on Lavinia scores and lifetime risk: 1. A Lavinia score greater than 3% is considered moderate risk. If this is the case, consider specialist referral to assess eligibility for a risk reducing agent. 2. If overall lifetime risk for the development of breast cancer is 20% or higher, the patient may qualify for future screening with alternating mammogram and breast MRI. [facility], , 02/10/2024 8:55 AM. Electronically signed and approved by: Soren López DO
== END | disposition home or self-care (01) ==
LOC: RADMAMWWP 12:34
PROVIDERS: ATTEND Family Medicine
DX: Z12.31 Encounter for screening mammogram for malignant neoplasm of breast (principal); R92.323 Mammographic fibroglandular density, bilateral breasts; Z78.0 Asymptomatic menopausal state
CPT/HCPCS: 77063; 77067

== ENCOUNTER → 2024-02-12 | Outpatient (CLI) | payer MEDICARE ==
--- NOTE | 2024-02-15 00:12 | BD ---
EXAMINATION TYPE: Axial Bone Density DATE OF EXAM: 02/12/2024 CLINICAL HISTORY: 73 years old Female. ICD-10 CODE: M81.0 AGE RELATED , Additional History: Height: 61" Weight: 128lbs FRAX RISK QUESTIONS: Alcohol (3 or more units per day): No Family History (Parent hip fracture): Yes, father Glucocorticoids (More than 3mos): No (Ex: prednisone, prednisolone, methylprednisolone, dexamethasone, and hydrocortisone). History of Fracture in Adulthood: Yes Secondary Osteoporosis: 1. Type 1 Diabetes: No 2. Hyperthyroidism: No 3. Menopause before 45: Yes 4. Malnutrition: No 5. Chronic liver disease: No Rheumatoid Arthritis: No Current Tobacco Use: No RISK FACTORS HISTORY OF: Hip Fracture (Right/Left): No Spine Fracture: No History of Wrist Fracture: No Surgery to Spine/Hip(right/left)/Wrist (right/left): No MEDICATIONS: Thyroid Medications: No Osteoporosis Medications: No EXAM MEASUREMENTS: Bone mineral densitometry was performed using the [employer] System. Bone mineral density as measured about the Lumbar spine is: ----- L1-L4(G/cm2): 0.748 T Score Values are as follows: ----- L1: -3.2 ----- L2: -3.8 ----- L3: -3.7 ----- L4: -3.8 ----- L1-L4: -3.6 Z Score Values are as follows: ----- L1: -1.2 ----- L2: -1.9 ----- L3: -1.7 ----- L4: -1.8 ----- L1-L4: -1.6 Bone mineral density has: decrease -5.1% since study of: 12/30/2019 Bone mineral density about the R hip (g/cm2): 0.731 Bone mineral density about the L hip (g/cm2): 0.715 T Score values are as follows: -----R Neck: -2.0 -----L Neck: -2.2 -----R Total: -2.2 -----L Total: -2.3 Z Score values are as follows: -----R Neck: -0.1 -----L Neck: 0.0 -----R Total: -0.3 -----L Total: -0.4 Bone mineral density has: decreased -0.4% since study of: 12/30/2019 FRAX%s: The graph provided illustrates a 35% chance for a major osteoporotic fx and a 20.1% chance fo r the hips probability for fx in 10 years time. IMPRESSION: Osteoporosis (T Score less than -2.5). There is increased fracture risk and therapy is usually indicated based on age. Re-Screen 1-2 years. NOTE: T-SCORE=SD OF THE YOUNG ADULT MEAN. [facility], , 02/15/2024 12:10 AM
== END | disposition home or self-care (01) ==
LOC: RADBDWWP 10:24
PROVIDERS: ATTEND Family Medicine
DX: M81.0 Age-related osteoporosis without current pathological fracture (principal)
CPT/HCPCS: 77080